=== PATIENT | male | born 1985 | race African-American/Black ===

== ENCOUNTER 2021-03-07 12:53 | Emergency (ER) | payer BC ==
[~2021-03-07] VITALS: Ht 172.7 cm; Wt 104.3 kg
[2021-03-07 13:15] VITALS: BP 116/75
[2021-03-07] MEDS ORDERED: PENI500T PO (14:21)
[2021-03-07] MEDS ORDERED: IBUP-1957 PO (14:22)
[2021-03-07] MEDS ORDERED: IBUPROFEN 400 MG TABLET PO ONE (14:30)
[2021-03-07] MEDS ORDERED: IBUPROFEN 600 MG TABLET ONE (14:32)
== END 2021-03-07 14:38 | disposition home or self-care (01) ==
LOC: ER 13:43
DX: K02.9 Dental caries, unspecified (principal)